=== PATIENT | female | born 1985 | race Caucasian/White ===

== ENCOUNTER 2020-05-22 00:28 | Inpatient (IN) ==
[2020-05-22] MEDS ORDERED: LIDOCAINE HCL 50 ML VIAL PERI PRN (01:10)
[2020-05-22] MEDS ORDERED: OXYTOCIN/0.9 % SODIUM CHLORIDE 30 UNITS/500 ML BAG IV ONE (01:10)
[2020-05-22] MEDS ORDERED: ONDANSETRON 4 MG TAB.RAPDIS PO PRN (01:10)
[2020-05-22] MEDS ORDERED: RINGER'S SOLUTION,LACTATED 1,000 ML IV ONE (01:10)
[2020-05-22] MEDS ORDERED: NALOXONE HCL 1 MG/1 ML SYRG IV PRN (01:15)
[2020-05-22] MEDS ORDERED: fentaNYL CITRATE/PF 50 MCG/ML AMPUL IT SCH (01:15)
[2020-05-22] MEDS ORDERED: BUPIVACAINE HCL/0.9 % NACL/PF 250 ML EP PRN (01:15)
[2020-05-22] MEDS ORDERED: ONDANSETRON HCL/PF 2 MG/ML VIAL IV PRN (01:15)
[2020-05-22] MEDS ORDERED: PENICILLIN G POTASSIUM 5 MILLIONUNT in DEXTROSE 5 % IN WATER 100 ML IV ONE ×2 (01:30)
[2020-05-22 01:54] LABS: Cocaine Ur Negative (NEGATIVE); Urine Barbiturate Negative (NEGATIVE); Urine Benzodiazepines Negative (NEGATIVE); Urine Opiates Negative (NEGATIVE); Urine PCP Negative (NEGATIVE); Urine THC Negative (NEGATIVE)
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
[2020-05-22] MEDS ORDERED: INSULIN REGULAR, HUMAN 100 UNITS in NORMAL SALINE 100 ML IV PRN ×2 (02:15)
--- NOTE | 2020-05-22 02:29 | ANES ---
Post Anesthesia Discharge - Transfer of Care Transfer of Care handoff given to nurse: Yes - Discharge from PACU Discharge from PACU when meets criteria: Yes - Comfortable post CSE
--- NOTE | 2020-05-22 02:32 | ANES ---
Anesthesia Procedure Note Procedure Note: ANESTHESIA PROCEDURE NOTE Date of Procedure: 05/22/2020 Time of procedure: 2:10 AM. Performed by: DALY Vallejo CRNA, MSN Buzzsaw Operator Helper: Pratima Schultz RN. Preprocedure diagnosis: Active labor, labor pain. Post procedure diagnosis: Same. Procedure:Epidural for labor analgesia L3-4. Indications: Labor pain. Findings: See below. Details of the procedure: The patient was placed on the side of the bed in sitting positionand prepped with DuraPrep then draped in a sterile fashion. Lidocaine 1% was infiltrated to the skin and subcutaneous tissues at the level of the L3-4 interspace. An 18-gauge Touhy needle was used to approach the epidural space with loss of resistance technique. Once loss of resistance was achieved a 27-gauge spinal needle was passed through the epidural needle and CSF was contacted. After CSF returned, 20 mcg of fentanyl was injected in the spinal needle was removed the epidural catheter was then threaded approximately 4 cm in the epidural needle was removed. The catheter was taped in place and after careful aspiration 3 mL of 1.5% lidocaine with 1-200,000 epinephrine was injected without change in maternal heart rate or sensorium. . EBL: Minimal. Fluids: N/A. Specimen: N/A. Post procedure condition: The patient tolerated the procedure well with good relief. No complications were noted. Thank you for this consultation. Tyrone Gallegos CRNA, DALY, MSN
[2020-05-22] MEDS: RINGER'S SOLUTION,LACTATED 1,000 ML IV PRN ×2 (02:34→18:31)
--- NOTE | 2020-05-22 02:41 | ANES ---
Post Anesthesia Assessment - Vital Signs Airway Patency: Normal - Mental Status Level Of Consciousness: Awake, Alert, Appropriate - Pain Level Pain Score: 0 - N/V Assessment Nausea/Vomiting Presence: None Dehydration:: No
[2020-05-22] MEDS: PENICILLIN G POTASSIUM 2.5 MILLIONUNT in DEXTROSE 5 % IN WATER 100 ML IV SCH ×10 (05:25→21:49)
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
[2020-05-22 10:21] LABS: Hematocrit 28.3 % (37.0-47.0); Mean Cell Volume 79.3 fl (78-100); Mean Corpuscular Hemoglobin 25.2 pg (27-31); Mean Corpuscular Hgb Conc 31.8 g/dl (32-36); Mean Platelet Volume 8.5 fl (8-12.5); Neutrophil # 10.6 K/mm3 (1.3-6.0); Neutrophil % 72.7 % (42-75.0); Platelet Count 195 K/mm3 (150-450); Red Blood Count 3.57 M/mm3 (4.2-5.4); Red Cell Distribution Width 13.9 % (11.5-14.0); White Blood Count 14.6 K/mm3 (4.0-10.5)
[2020-05-22 10:24] LABS: Random Urine Total Protein 15.9 mg/dL (0-12)
[2020-05-22 10:49] LABS: Albumin * 2.3 gm/dl (3.4-5.0); BUN/Creatinine Ratio 7.1 (9.0-21.6); Bilirubin, Total 0.4 mg/dL (0.0-1.1); Ca. Corrected For Albumin 9.4 mg/dL (8.4-10.2); Calcium * 8.4 mg/dL (7.9-10.9); Carbon Dioxide 26.2 mmol/L (24-32.6)
[2020-05-22 10:56] LABS: Anion Gap 11.1 mmol/L (6.8-13.8); Potassium 3.3 mmol/L (3.4-4.6)
[2020-05-22] MEDS ORDERED: POTASSIUM CHLORIDE 20 MEQ TABLET.SA PO ONE (10:58)
--- NOTE | 2020-05-22 11:10 | PN ---
Progess Note - Interim Date: 05/22/20 Time: 11:04 Narrative: 05/22/20 11:04 The patient is comfortable BPs noted to be elevated this morning. Pre-eclampsia labs ordered. Pre-eclampsia labs are normal. The patient has had an elevated BP at 34 weeks and thus she meets the criteria for gestational hypertension. A couple of BPs were in the severe range but now all BPs are stable and in the mild range. Proceed with IOL at midnight with pitocin. cvx just checked and the patient is unchanged. Allow regular diet for lunch and dinner as long as the patient's condition is stable. No need for continuous monitoring given normal tracing. Stop PCN until midnight Turn epidural back on at midnight CMP showed hypokalemia. Kdur 40 mEq given PO. Recheck BMP in the morning
[2020-05-22] MEDS: hydrOXYzine PAMOATE 50 MG CAPSULE PO PRN ×2 (11:20→21:18)
[2020-05-22] MEDS: BUTORPHANOL TARTRATE 2 MG/ML VIAL IV PRN ×2 (14:12→17:52)
[2020-05-22] MEDS ORDERED: INSULIN NPH HUMAN ISOPHANE 100 UNITS/ML VIAL SC SCH (17:00)
--- NOTE | 2020-05-23 00:02 | OR ---
Operative Report - Dictated Report Narrative: Spontaneous vaginal delivery of viable male at 2338 on 05/22/2020 with Apgars 9 and 9, weighing 3713 g in MALISSA position with tight nuchal cord x1. began vigorously crying 30 seconds after . Cord clamping delayed approximately 1 minute Placenta delivered complete, intact, with three vessel cord Estimated blood loss: Less than 50 ml Anesthesia: Epidural Lacerations: Less than 1 cm vaginal laceration with no repair needed. History for History for Definition: * The number of deliveries resulting in a live the patient experienced prior to current hospitalization * The previous delivery of live twins or any live multiple gestation is considered one live event. *If primagravida or nulliparous is documented select zero for the number of previous live births. Live Events: Live Events: 2
--- NOTE | 2020-05-23 00:06 | DS ---
OB Discharge Summary Delivery Date: 05/22/20 Delivery Time: 23:38 :: 3 Para:: 3 Gestational weeks:: 36 Gestational days:: 6 Intrapartum Procedures: Spontaneous Vaginal Delivery, Delivered, Anesthesia - Epidural /OP Complications: GHTN, GDM Discharge Diagnosis: GDM - Insulin Dependent, Gestational Hypertension, Premature Labor, Delivery, Rubella Immune, Other - GBS carrier, Smoker - Discharge Information Date of Discharge: 05/24/20 Hospital Course: 34-year-old 3 now para 3 admitted for labor. During her period of evaluation she was also diagnosed with gestational hypertension. Her blood sugars remained stable throughout labor. She had an uncomplicated 36 weeks 6- day delivery. Her course was complicated by 2 random episodes of tachycardia in the 200s. Each episode lasted approximately 10 to 11 minutes and the patient remained completely asymptomatic during these episodes. day 2 was complicated by a critical fasting blood sugar of 40 which resolved quickly with oral intake. Patient exhibited no hypoglycemic symptoms and states she felt completely normal. She was discharged to home with routine instructions with additional instructions to follow-up with her primary care physician for evaluation of her tachycardic episodes. She will also recheck her fasting blood sugar and 1 hour postprandial blood sugar prior to her appointment. She desires permanent sterilization and was counseled on the risk/benefits/alternatives to this procedure and will be scheduled for outpatient surgery at a later date. Discharge Location: Home Disposition: Home self-care Condition: Good Activity on Discharge:: Activity as tolerated, Pelvic Rest Discharge Diet: General/regular food Additional Patient Instructions (free text): Kathi you have an appointment with Dr. Monroy in 2 weeks on at 10:15 in the morning. On the day of your appointment Dr. Monroy would like you to take a fasting blood sugar and a 1 hour post prandial blood sugar. Please bring these result results to your appointment. Follow up with your primary care doctor to evaluate your episodes of fast heart rate. Ye has an appointment Ye blood type is A+, he has passed his hearing screen, CHD screen, and his metabolic screen has been drawn. Please continue to feed Ye every 3 hours. Always lay Ye on his back to sleep with no objects or loose blankets in his sleeping space. Thank you for choosing [facility] for your special delivery. Complete Home Medications List: Complete Home Medication List: terry.vits,tony,ovu-fbsv-lsjxo 1 tab PO DAILY 10/27/19 blood-glucose meter See Rx Instructions .ROUTE .MEDSUPPLY #1 ea 10/30/19 lancets 28 gauge See Rx Instructions .ROUTE .MEDSUPPLY #100 ea 10/30/19 ferrous sulfate 325 mg (65 mg iron) tablet,delayed release 325 mg PO DAILY #30 tab 03/25/20 blood sugar diagnostic See Rx Instructions .ROUTE .MEDSUPPLY #100 ea 04/07/20 Ferrous Sulfate 325 mg PO DAILY #60 tablet 05/24/20 Ibuprofen [Motrin] 200 - 800 mg PO Q6H PRN #100 tab 05/24/20 - Plan Discharge to:: Home Follow up in office in:: 3-4 weeks - Information Weight (Grams): 3,713 Infant Sex: Male Score 1 min: 9 Score 5 min: 9 Infant Complications: None
[2020-05-23] MEDS ORDERED: IBUPROFEN 800 MG TABLET PO PRN (00:09)
[2020-05-23] MEDS ORDERED: GLYCERIN/WITCH HAZEL LEAF 40 APPL BOX TP PRN (00:09)
[2020-05-23] MEDS ORDERED: BENZOCAINE/MENTHOL 81 SPRAY CAN TP PRN (00:09)
[2020-05-23] MEDS ORDERED: HYDROCORTISONE 30 APPL TUBE TP PRN (00:09)
[2020-05-23] MEDS ORDERED: SENNOSIDES 8.6 MG TABLET PO PRN (00:09)
[2020-05-23] MEDS ORDERED: OXYTOCIN/0.9 % SODIUM CHLORIDE 30 UNITS/500 ML BAG IV ONE (00:09)
[2020-05-23] MEDS ORDERED: BISACODYL 10 MG SUPP.RECT RC PRN (00:09)
[2020-05-23] MEDS: oxyCODONE HCL/ACETAMINOPHEN 1 TAB TABLET PO PRN ×3 (01:34→17:45)
[2020-05-23] MEDS: IBUPROFEN 800 MG TABLET PO PRN ×3 (01:35→17:45)
[2020-05-23 06:18] LABS: Anion Gap 12.2 mmol/L (6.8-13.8); Calcium * 8.6 mg/dL (7.9-10.9); Carbon Dioxide 25.5 mmol/L (24-32.6); Estimated Creat Clear 137.8; Potassium 3.7 mmol/L (3.4-4.6)
[2020-05-23] MEDS ORDERED: PRENATAL VITS96/IRON FUM/FOLIC 1 TAB TABLET PO SCH (09:00)
[2020-05-23] MEDS ORDERED: FERROUS SULFATE 325 MG TABLET PO SCH (09:00)
[2020-05-23] MEDS ORDERED: RHO(D) IMMUNE GLOBULIN 1,500 UNIT SYRINGE IM ONE (09:00)
[2020-05-23] MEDS: DOCUSATE SODIUM 100 MG CAPSULE PO SCH ×2 (09:34→21:07)
--- NOTE | 2020-05-23 12:54 | PN ---
Subjective - Date and Time Seen Date: 05/23/20 Time: 12:51 Objective - Vitals Vitals: Last Vital Signs Temp 36.7 C 05/23/20 08:05 Pulse 102 H 05/23/20 08:05 Resp 16 05/23/20 08:05 BP 110/59 05/23/20 08:05 Pulse Ox 98 05/23/20 08:05 Patient denies complaints. Lochia wnl abdomen - soft, nontender Uterus -firm, at umbilicus - 1 No calf tenderness Impression: day #1 - s/p spontaneous vaginal delivery. Gestational diabetes. Hypokalemia-resolved. Plan: Continue routine care. Check fasting and 1 hour postprandial blood sugars tomorrow morning. - Abnormal Lab Findings Abnormal Lab Findings: Abnormal Lab Results 05/23/20 Range/Units 05:55 Chloride 107 H (97-106) mmol/L Est GFR (Non-Af Amer) 131 H (60-130) mL/min BUN/Creatinine Ratio 7.0 L (9.0-21.6) Cauti Physician Documentation - Urinary Catheter Management Urethral (Rader) Date of Insertion: 05/22/20 Time of Insertion: 20:45 Date of Removal: 05/22/20 Time of Removal: 23:35 Assessment/Plan - Problems/Diagnosis (1) Gestational diabetes Problem: Resolved Qualifiers: Gestational diabetes mellitus control: insulin-controlled Trimester: third trimester Qualified Code(s): O24.414 - Gestational diabetes mellitus in , insulin controlled (2) Anemia Problem: Chronic Qualifiers: Anemia type: iron deficiency Iron deficiency anemia type: inadequate dietary iron intake Qualified Code(s): D50.8 - Other iron deficiency anemias (3) labor with delivery Problem: Acute Qualifiers: Fetus number: single or unspecified fetus Qualified Code(s): O60.10X0 - labor with delivery, unspecified trimester, not applicable or unspecified (4) Anxiety and depression Problem: Inactive (5) Bipolar disorder Problem: Inactive Qualifiers: Active/Remission status: in remission of unspecified degree Qualified Code(s): F31.70 - Bipolar disorder, currently in remission, most recent episode unspecified (6) Borderline personality disorder Problem: Inactive (7) Smoker Problem: Chronic
[2020-05-24] MEDS: oxyCODONE HCL/ACETAMINOPHEN 1 TAB TABLET PO PRN (01:56)
[2020-05-24] MEDS: IBUPROFEN 800 MG TABLET PO PRN (01:57)
[2020-05-24 06:35] VITALS: BP 133/61
--- NOTE | 2020-05-24 09:10 | PN ---
Subjective - Date and Time Seen Date: 05/24/20 Time: 07:15 Objective - Review of Systems Generalized/Overall Review: Reports: No Symptoms Reported EENTM: Reports: No Symptoms Reported Respiratory: Reports: No Symptoms Reported Cardiac: Reports: No Symptoms Reported Abdominal: Reports: Other - mild cramping Genitourinary Symptoms: Reports: No Symptoms Reported Musculoskeletal Complaints: Reports: No Symptoms Reported Neurological: Reports: No Symptoms Reported Skin: Reports: No Symptoms Reported Endocrine: Reports: No Symptoms Reported - Vitals Vitals: Last Vital Signs Temp 36.7 C 05/24/20 06:34 Pulse 100 05/24/20 06:34 Resp 18 05/24/20 06:34 BP 133/61 05/24/20 06:34 Pulse Ox 99 05/24/20 06:34 - Abnormal Lab Findings Abnormal Lab Findings: FBS 40. BS 56 on recheck, 80 30min after eating. Telemetry - normal sinus rhythm. - Exam Constitutional: Present: Alert, Oriented x3, Cooperative, No distress ENT Exam: Present: hearing grossly normal Neck: Present: non-tender Breasts: Present: Exam deferred Respiratory: Present: no respiratory distress Cardiovascular/Chest: Present: regular rate, rhythm, no edema Abdomen: Present: soft, nontender, no rebound tenderness, other. Absent: guarding /Rectal: Present: Other - uterus involuting appropriately, at U-1, NT, firm Extremity: Present: no pedal edema, no calf tenderness Skin Exam: Present: normal color, warm/dry, no cyanosis Lymphatic: Present: no adenopathy Neurologic: Present: alert, normal mood/affect, oriented x 3 Appearance: Present: appropriate appearance, appropriate insight Eye contact: Present: cooperative, good eye contact Thoughts: Present: normal thought pattern, normal mood /affect Cauti Physician Documentation - Urinary Catheter Management Urethral (Rader) Date of Insertion: 05/22/20 Time of Insertion: 20:45 Date of Removal: 05/22/20 Time of Removal: 23:35 Assessment/Plan Plan Narrative: Routine care. Routine discharge instructions given to patient. Patient instructed to check fasting blood sugar and 1 hour postprandial blood sugar the day of her visit. Patient counseled on the risk/benefits/alternatives to bilateral salpingectomy for sterilization. Consent forms will be signed in the office today and she will be scheduled after 30 days for a laparoscopic bilateral salpingectomy. Patient instructed to follow-up with her primary care physician to assess her episodes of tachycardia. - Problems/Diagnosis (1) labor with delivery Problem: Acute Qualifiers: Fetus number: single or unspecified fetus Qualified Code(s): O60.10X0 - labor with delivery, unspecified trimester, not applicable or unspecified (2) Gestational diabetes Problem: Resolved Qualifiers: Gestational diabetes mellitus control: insulin-controlled Trimester: third trimester Qualified Code(s): O24.414 - Gestational diabetes mellitus in , insulin controlled (3) Anemia Problem: Chronic Qualifiers: Anemia type: iron deficiency Iron deficiency anemia type: inadequate dietary iron intake Qualified Code(s): D50.8 - Other iron deficiency anemias (4) Anxiety and depression Problem: Inactive (5) Bipolar disorder Problem: Inactive Qualifiers: Active/Remission status: in remission of unspecified degree Qualified Code(s): F31.70 - Bipolar disorder, currently in remission, most recent episode unspecified (6) Borderline personality disorder Problem: Inactive (7) Smoker Problem: Chronic (8) Tachycardia Problem: Resolved
== END 2020-05-24 10:50 | disposition home or self-care (01) | DRG 807 ==
LOC: OBCLINIC 00:28 → OB 00:58
PROVIDERS: ADMIT Obstetrics & Gynecology; ATTEND Obstetrics & Gynecology